=== PATIENT | male | born 1960 | race Caucasian/White ===

== ENCOUNTER 2018-09-05 10:47 | Emergency (ER) | payer OTHER ==
[~2018-09-05] VITALS: Ht 182.9 cm; Wt 137.9 kg
[2018-09-05] MEDS ORDERED: ASPIR 8181 MG PO (11:04)
[2018-09-05] MEDS ORDERED: HYDROCHLOROTHIA25 M2 PO (11:04)
[2018-09-05] MEDS ORDERED: JANUVIA100 MG PO (11:04)
[2018-09-05] MEDS ORDERED: COREG6.25 MG PO (11:05)
[2018-09-05] MEDS ORDERED: METHOTREXATE 22.5 MG PO (11:05)
[2018-09-05] MEDS ORDERED: NEURONTIN 400400 M1 PO (11:05)
[2018-09-05] MEDS ORDERED: ATORVASTATIN CA40 MG PO (11:05)
[2018-09-05] MEDS ORDERED: TURMERIC500 M2 PO (11:06)
[2018-09-05] MEDS ORDERED: METAMUCIL PLUS1 EACH PO (11:07)
[2018-09-05] MEDS ORDERED: CENTRUM SILVER1 EAC4 PO (11:07)
[2018-09-05] MEDS ORDERED: GLUCOSAMINE HC500 MG PO (11:07)
[2018-09-05] MEDS ORDERED: FOLIC ACID1 MG (11:07)
[2018-09-05] MEDS ORDERED: METFORMIN HCL500 MG PO (11:08)
[2018-09-05] MEDS ORDERED: COZAAR 25 MG TA25 M1 PO (11:08)
[2018-09-05] MEDS ORDERED: VITAMIN B-12500 MCG PO (11:08)
[2018-09-05 11:25] LABS: ABSOLUTE EOSINOPHILS 0.2 thou/uL (0.0-0.7); ABSOLUTE LYMPHOCYTES 1.6 thou/uL (0.8-5.3); ABSOLUTE MONOCYTES 0.5 thou/uL (0.0-1.2); ABSOLUTE NEUTROPHILS 4.6 thou/uL (1.6-8.1); BASOPHILS 0.4 %; EOSINOPHILS 2.8 %; HEMATOCRIT 34.6 % (42.0-52.0); HEMOGLOBIN 11.6 gm/dL (14.0-18.0); LYMPHOCYTES 22.8 %; MCH 33.1 pg (26.0-34.0); MCHC 33.6 g/dL (28.0-37.0); MCV 98.3 fL (80.0-100.0); MONOCYTES 7.9 %; MPV 7.6 fl. (7.2-11.1); NUCLEATED RBCS 0 /100WBC; PLATELET COUNT* 262 thou/uL (150-400); POLYS 66.1 %; RBC 3.52 mil/uL (4.50-6.00); WBC 6.9 thou/uL (4.0-11.0)
[2018-09-05 11:32] LABS: CALCIUM 9.2 mg/dL (8.5-10.1); CREATININE 0.9 mg/dL (0.6-1.3); POTASSIUM 3.9 mmol/L (3.5-5.1)
[2018-09-05 11:34] LABS: APTT 25.4 Seconds (25.0-31.3)
[2018-09-05 11:37] LABS: ALBUMIN 3.4 g/dL (3.4-5.0); TOTAL BILIRUBIN 0.2 mg/dL (<0.1-1.0); TOTAL PROTEIN 7.4 g/dL (6.4-8.2)
[2018-09-05] MEDS ORDERED: HYDROCORTISONE30 G9 RECTAL (12:39)
[2018-09-05 12:51] VITALS: BP 98/72
== END 2018-09-05 12:51 | disposition home or self-care (01) ==
LOC: M.ERS 10:47
PROVIDERS: Nurse Practitioner Family
DX: K51.90 Ulcerative colitis, unspecified, without complications (principal); E11.9 Type 2 diabetes mellitus without complications; Z90.49 Acquired absence of other specified parts of digestive tract; I25.2 Old myocardial infarction; Z88.8 Allergy status to other drugs, medicaments and biological substances

== ENCOUNTER → 2020-07-15 | Outpatient (CLI) | payer BC ==
[~2020-07-15] MED LIST: ASPIR 8181 MG PO; CARVEDILOL12.5 MG PO; CENTRUM SILVER1 EAC4 PO; CINNAMON500 MG PO; COREG6.25 MG PO; COZAAR 25 MG TA25 M1 PO; FOLIC ACID1 MG; GLUCOPHAGE1000 MG PO; GLUCOSAMINE HC500 MG PO; HYDROCHLOROTHIA25 M2 PO; HYDROCORTISONE30 G9 RECTAL; JANUVIA100 MG PO; LIPITOR40 MG PO; METAMUCIL PLUS1 EACH PO; METFORMIN HCL500 MG PO; METHOTREXA25 MG/1 ML IM; METHOTREXATE 22.5 MG PO; NEURONTIN 400400 M1 PO; NITROGLYCERIN0.4 MG SUBLING; SINGULAIR 10 MG10 M1 PO; TOUJEO MAX300 UNIT/1 SUBQ; TURMERIC500 M2 PO; VITAMIN B-12500 MCG PO
== END ==
LOC: M.LAB 11:17
PROVIDERS: ATTEND Internal Medicine Gastroenterology
DX: Z01.812 Encounter for preprocedural laboratory examination (principal); Z20.828 Contact with and (suspected) exposure to other viral communicable diseases; K50.90 Crohn's disease, unspecified, without complications; R10.9 Unspecified abdominal pain; K62.5 Hemorrhage of anus and rectum

== ENCOUNTER → 2020-07-19 | Day surgery (SDC) | payer BC ==
--- NOTE | ~2020-07-19 | PROC ---
[address] [address] PROCEDURE REPORT Name: BIANCA BANDA Room: [facility]#: [id number] Admission: 07/19/20 Attend Phys: Mack Burch MD Discharge: Date of : 58 Report #: [id number] THIS REPORT FOR: //name// cc: Nya Shirley Ahmad W. DO ~ THIS REPORT FOR: //name// For GI report, please see the Provation report in Per[employer] 7 content. By: [facility] Records Staff EL /ELÍAS
[2020-07-19 09:29] LABS: HEMATOCRIT 40.2 % (42.0-52.0); HEMOGLOBIN 13.6 gm/dL (14.0-18.0); MCH 32.4 pg (26.0-34.0); MCHC 33.9 g/dL (28.0-37.0); MCV 95.6 fL (80.0-100.0); MPV 7.9 fl. (7.2-11.1); RBC 4.2 mil/uL (4.50-6.00); RDW-CV 15.9 % (10.5-14.5); WBC 6.3 thou/uL (4.0-11.0)
[2020-07-19 09:36] LABS: CALCIUM 8.7 mg/dL (8.5-10.1)
--- NOTE | 2020-07-19 16:40 | EKG ---
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
--- NOTE | 2020-07-23 18:06 | PATH ---
[address] [address] PATHOLOGY RPT PROCEDURE Name: CONOR BANDA Room: [facility]#: [id number] Admission: 07/19/20 Date of : 58 Discharge: Report #: [id number] Path Case #: [id number] [facility] Accession Number: [id number] . 01 Material submitted: . PART A: duodenum - DUODENAL BIOPSY PART B: stomach - GASTRIC BIOPSY PART C: ileum - TERMINAL ILEUM BIOPSY PART D: colon - RANDOM COLON BIOPSIES RIGHT. Modifiers: right PART E: colon - RANDOM COLON BIOPSIES LEFT. Modifiers: left PART F: rectum - RECTAL POLYP . 01 Clinical history: . CROHN'S, RECTAL BLEEDING, ABDOMINAL CRAMPING . 02 Diagnosis: A. Duodenal biopsy: - Moderate nonspecific active duodenitis, negative for granulomas, viral inclusions and dysplasia. See comment. . B. Gastric biopsy: - Mild nonspecific chronic gastritis, negative for Helicobacter pylori organisms, granulomas and dysplasia. . C. Terminal ileum biopsy: - Normal small intestinal mucosa. . D. and E. Random colon biopsies right and random colon biopsies left: - Focal fresh hemorrhage in otherwise normal colonic mucosa. . F. Rectal polyp: - Hyperplastic polyp. (ALEX:keegan; 07/23/2020) QMS 07/23/2020 1454 Local . 02 Comment: The inflammatory features seen in the duodenum biopsy (A) are nonspecific but can be seen in Crohn's duodenitis. (ALEX:keegan; 07/23/2020) . Special stain on B: H. pylori immuno . 02 Electronically signed: . Pancho Sanderson MD, Pathologist NPI- [id number] . 01 Gross description: . A. Received in formalin labeled "Conor Banda duodenal" is a 1.0 [place] [address] PATHOLOGY RPT PROCEDURE Name: CONOR BANDA Room: [facility]#: [id number] Admission: 07/19/20 Date of : 58 Discharge: Report #: [id number] Path Case #: [id number] 0.3 x 0.1 cm aggregate of dobbs-brown soft tissue fragments. The specimen is submitted entirely in A1. . B. Received in formalin labeled "Conor Banda gastric" is a 0.7 x 0.5 x 0.1 cm aggregate of dobbs-brown soft tissue fragments. The specimen is submitted entirely in B1. . C. Received in formalin labeled "Conor Banda, terminal ileum" is a 1.2 x 0.3 x 0.1 cm aggregate of dobbs-brown soft tissue fragments. The specimen is submitted entirely in C1. . D. Received in formalin labeled "Conor Banda, random colon-right" is a 1.2 x 0.5 x 0.1 cm aggregate of dobbs-brown soft tissue fragments. The specimen is submitted entirely in D1. . E. Received in formalin labeled "Conor Banda, random colon-left" is a 0.7 x 0.7 x 0.1 cm aggregate of dobbs-brown soft tissue fragments. The specimen is submitted entirely in E1. . F. Received in formalin labeled "Conor Banda, rectal polyp" is a 0.5 x 0.4 x 0.1 cm pink-dobbs nodular mucosal polyp. The margin is inked and the specimen is submitted without sectioning in F1. ([facility]; 07/19/2020) [facility] 07/19/20202058 [facility] . 02 Pathologist provided ICD-10: K29.80, K29.50, K92.2, K62.1 . 02 CPT . 668071, 414083, 004903, 880629, 079684, 965798, [id number] Specimen Comment: A courtesy copy of this report has been sent to [phone], [phone] Specimen Comment: [id number] Specimen Comment: Report sent to / Performed at: 01 [facility] [address], [place] [id number] MD Molina Mckeon MD Phone: [phone] Performed at: [address] [facility] [address] [id number] MD Pancho Sanderson MD Phone: [phone]
== END | disposition home or self-care (01) ==
LOC: M.SUR 07-16 11:08
PROVIDERS: ATTEND Internal Medicine Gastroenterology
DX: R10.9 Unspecified abdominal pain (principal); K50.90 Crohn's disease, unspecified, without complications; K62.5 Hemorrhage of anus and rectum; K57.30 Diverticulosis of large intestine without perforation or abscess without bleeding; R10.13 Epigastric pain; K29.50 Unspecified chronic gastritis without bleeding; K21.0 Gastro-esophageal reflux disease with esophagitis; K44.9 Diaphragmatic hernia without obstruction or gangrene; K31.89 Other diseases of stomach and duodenum; K63.89 Other specified diseases of intestine; K62.1 Rectal polyp; Z79.899 Other long term (current) drug therapy; Z98.890 Other specified postprocedural states; Z88.8 Allergy status to other drugs, medicaments and biological substances